=== PATIENT | male | born 1950 | race Caucasian/White ===

== ENCOUNTER 2018-04-23 13:40 | Outpatient (RCR) | payer OTHER ==
[~2018-04-23] VITALS: Ht 182.9 cm; Wt 95.3 kg
[~2018-04-23 13:40] MED LIST: CHOL100058 PO; LOR5 PO; ONDA4TAB PO; OXYC-865 PO; SAW450CA3 PO; TAMS0.4C25 PO
--- NOTE | 2018-04-23 16:26 | Medical Nutrition Therapy ---
Nutrition Anthropometrics Height (Inches): 72 Weight (Pounds): 210 BMI: 28 Doug Nutrition Score: Doug Nutrition Risk Score: Dietary Referral Nutrition Risk Factors: Nutrition Risk Comment: Nutrition/Food History Breakfast: cereal, milk, fruit Lunch: [place] [facility] or sandwich or salad Dinner: meat, starch, veg or sand/salad Snacks: cranberry and grapefruit pierre Nutritional Education Nutrition Education Topic: Diabetic Nutrition Learning Readiness: Eager Teaching Methods: Discussion, Handout, Demonstration Response to Teaching: Verbalize understanding Teaching Recipient: Patient Nutrition Counseling: Pt with new dx T2DM. Pt stated had A!C in 6's last year and this year was 12.3. Unknown why it would increase that rabidly in 1 year. Explained the difference between type 1, type 2 and JAILYN diabetes. [place] pt is controlling BG with diet only. Discussed glucometer and recommend pt check BG. Reviewed plate method and CHO counting. Provided meal plan of 60gm CHO or 2c using plate method. Pt set behavioural goals and support plan. Pt is scheduled for diabetes classes. Nutrition Monitoring & Eval RD Patient Assessment Time: 75 minutes Nutritional Comment: Provided 75 minutes diabetes education focuaing on what is diabetes, nutrtion, behavioural goal and support plan. Copies To Copies to: BIANCA CLEMONS BETH Apr 23, 2018 16:26
--- NOTE | 2018-05-10 18:05 | Medical Nutrition Therapy ---
Nutritional Education Nutrition Education Topic: Other Learning Readiness: Eager, Interested Teaching Methods: Discussion, Handout, Audiovisual Response to Teaching: Verbalize understanding Teaching Recipient: Patient, Significant Other Nutrition Monitoring & Eval RD Patient Assessment Time: [address] Assessment Type: RD Education Nutritional Comment: Provided 75 minutes diabetes education focuaing on what is diabetes, nutrtion, behavioural goal and support plan. 05/10/18 Pt recently diagnosed with T2DM after overt symptoms and blood glucose levels in the 300's. Pt and instructed on Living with Diabetes topics including foot care, terminal operator complications, exercise, hypoglycemia, sick day care, etc. Pt appears interested in diabetes topics and able to answer questions regarding topics covered. I personally spent a total of 90 minutes educating/counseling patient regarding diabetes self-management in a group setting. See education section and my note above for details. -DRT Copies To Copies to: BIANCA CLEMONS DIANNE May 10, 2018 18:05
--- NOTE | 2018-05-24 13:56 | Medical Nutrition Therapy ---
Nutritional Education Nutrition Counseling: Provided group diabetes education on nutrition. Reviewed: process of digestion; function of CHO, protein and fat; glycemic index; reading labels, portion sizes; heart healthy intake; eating out, alcohol. Nutrition Monitoring & Eval RD Patient Assessment Time: [address] Assessment Type: RD Education Nutritional Comment: Provided 75 minutes diabetes education focuaing on what is diabetes, nutrtion, behavioural goal and support plan. 05/10/18 Pt recently diagnosed with T2DM after overt symptoms and blood glucose levels in the 300's. Pt and instructed on Living with Diabetes topics including foot care, keno terminal operator complications, exercise, hypoglycemia, sick day care, etc. Pt appears interested in diabetes topics and able to answer questions regarding topics covered. I personally spent a total of 90 minutes educating/counseling patient regarding diabetes self-management in a group setting. See education section and my note above for details. -EKATERINA 05/24 Provided 90 minutes diabesed education in a group setting focusing on nutrition. TREVOR. Copies To Copies to: BIANCA CLEMONS BETH May 24, 2018 13:56
== END 2018-05-28 ==
LOC: DIET 13:40
PROVIDERS: ATTEND Nurse Practitioner Psychiatric/Mental Health
DX: Z71.3 Dietary counseling and surveillance (principal); E11.65 Type 2 diabetes mellitus with hyperglycemia; Z68.28 Body mass index [BMI] 28.0-28.9, adult
CPT/HCPCS: G0108; G0109

== ENCOUNTER 2019-03-20 07:10 | Emergency (ER) | payer MEDICARE, OTHER ==
[2019-03-20] MEDS ORDERED: NS(*) 0.9% 1000 ML BAG 1,000 ML IV ONE (07:12)
[2019-03-20] MEDS ORDERED: ONDANSETRON 4 MG/2 ML VIAL IVP ONE (07:15)
[2019-03-20] MEDS ORDERED: KETOROLAC 30 MG/ML VIAL IVP ONE (07:15)
[2019-03-20 07:41] LABS: PLATELET COUNT, AUTOMATED 190 K/uL (150-450)
--- NOTE | 2019-03-20 08:15 | ER Report ---
History and Physical Time Seen By MD: 17:10 Hx. of Stated Complaint: patient reports left flank pain. he reports that he passed a kidney stone yesterday. he has had these before but never back to back. HPI/ROS CHIEF COMPLAINT: Left flank pain HISTORY OF PRESENT ILLNESS: Patient is a 68-year-old male comes emergency Dep artment complaining of left flank pain that began this morning about 5:00 in the morning. Patient's physical back to [facility] up an hour later still had the severe pain. Patient also states he no he passed a kidney stone yesterday she had a 9 mm stone that dropped into the UVJ and he was able to pass it and was thinks secondary to be no more pain already he is having pain in the left side. Patient has a history of kidney stones in the past. Patient's denying nausea vomiting diarrhea fever chills after arrival E's back to being pain-free. Patient has no additional complaints REVIEW OF SYSTEMS: Respiratory: No cough, no dyspnea. Cardiovascular: No chest pain, no palpitations. Gastrointestinal: No vomiting, no abdominal pain. Musculoskeletal: Left flank pain Remainder of the 14 system rev: Yes Allergies: Coded Allergies: No Known Drug Allergies (Unverified , 04/16/15) Home Meds Active Scripts Tamsulosin Hcl (FLOMAX) 0.4 Mg Cap.er.24h, 0.4 MG PO DAILY, #7 Prov:THAD PLAZA 04/16/15 Reported Medications Cholecalciferol (Vitamin D3) (VITAMIN D) 1,000 Unit Capsule, 1000 UNIT PO, CAPSULE 12/10/15 Saw Norlina Fruit (SAW PALMETTO) 450 Mg Capsule, 450 MG PO, CAPSULE 12/10/15 Reviewed Nurses Notes: Yes Old Medical Records Reviewed: Yes Hx Smoking: Yes (1PPD FOR 45 YRS) Smoking Status: Never Smoker Hx Substance Use Disorder: No Hx Alcohol Use: Yes Constitutional Vital Sign - Last 24 Hours 03/20/19 07:13 Temp 97.7 Pulse 74 Resp 20 B/P (MAP) 139/86 Pulse Ox 92 O2 Delivery Room Air Physical Exam General Appearance: The patient is alert, has no immediate need for airway protection and no current signs of toxicity. [ ] Eyes: Pupils equal and round no injection. Respiratory: Chest is non tender, lungs are clear to auscultation. Cardiac: regular rate and rhythm [ ] Gastrointestinal: Abdomen is soft and non tender, no masses, bowel sounds normal. Musculoskeletal: Neck: Neck is supple and non tender. Extremities have full range of motion and are non tender. Skin: No rashes or lesions. [ ] DIFFERENTIAL DIAGNOSIS: After history and physical exam differential diagnosis was considered for kidney stone nephrolithiasis urinary tract infection Medical Decision Making Data Points Result Diagram: 03/20/19 0720 03/20/19 0720 Laboratory Hematology Test 03/20/19 07:13 03/20/19 07:20 Urine Color Yellow Urine Clarity Clear Urine pH 5.0 pH (4.8-9.5) Urine Specific [place] 1.021 Urine Protein Negative mg/dL (NEGATIVE) Urine Glucose (UA) Negative mg/dL (NEGATIVE) Urine Ketones 20 mg/dL (NEGATIVE) Urine Blood Moderate (NEGATIVE) Urine Nitrite Negative (NEGATIVE) Urine Bilirubin Negative (NEGATIVE) Urine Urobilinogen Negative mg/dL (0.2-1.9) Urine Leukocyte Esterase Negative (NEGATIVE) Urine RBC 7 /HPF (0-2/HPF) Urine WBC 2 /HPF (0-5/HPF) Urine Squamous Epithelial Cells Few /LPF (</=FEW) Urine Bacteria Negative /HPF (NONE-FEW) Urine Hyaline Casts Few /LPF (NONE-FEW) Urine Mucus Few /HPF (NONE-FEW) Red Blood Count 4.81 M/uL (4.00-5.60) Mean Corpuscular Volume 94.0 fL (80.0-96.0) Mean Corpuscular Hemoglobin 31.5 pg (26.0-33.0) Mean Corpuscular Hemoglobin Concent 33.5 g/dL (32.0-36.0) Red Cell Distribution Width 14.1 % (11.5-14.5) Mean Platelet Volume 7.4 fL (7.2-11.1) Neutrophils (%) (Auto) 77.3 % (39.4-72.5) Lymphocytes (%) (Auto) 10.6 % (17.6-49.6) Monocytes (%) (Auto) 10.9 % (4.1-12.4) Eosinophils (%) (Auto) 0.7 % (0.4-6.7) Basophils (%) (Auto) 0.5 % (0.3-1.4) Nucleated RBC Relative Count (auto) 0.0 /100WBC Neutrophils # (Auto) 9.3 K/uL (2.0-7.4) Lymphocytes # (Auto) 1.3 K/uL (1.3-3.6) Monocytes # (Auto) 1.3 K/uL (0.3-1.0) Eosinophils # (Auto) 0.1 K/uL (0.0-0.5) Basophils # (Auto) 0.1 K/uL (0.0-0.1) Nucleated RBC Absolute Count (auto) 0.00 K/uL Sodium Level 138 mmol/L (137-145) Potassium Level 4.0 mmol/L (3.5-5.0) Chloride Level 109 mmol/L (98-107) Carbon Dioxide Level 21 mmol/L (22-30) Blood Urea Nitrogen 21 mg/dl (9-21) Creatinine 1.20 mg/dl (0.66-1.25) Glomerular Filtration Rate Calc > 60.0 Random Glucose 156 mg/dl (75-110) Calcium Level 9.7 mg/dl (8.4-10.2) Total Bilirubin 1.0 mg/dl (0.2-1.3) Aspartate Amino Transf (AST/SGOT) 21 U/L (0-35) Alanine Aminotransferase (ALT/SGPT) 31 U/L (0-56) Alkaline Phosphatase 92 U/L (0-126) Total Protein 6.6 g/dl (6.3-8.2) Albumin 3.8 g/dl (3.5-5.0) Lipase 22 U/L (23-300) Chemistry Test 03/20/19 07:13 03/20/19 07:20 Urine Color Yellow Urine Clarity Clear Urine pH 5.0 pH (4.8-9.5) Urine Specific [place] 1.021 Urine Protein Negative mg/dL (NEGATIVE) Urine Glucose (UA) Negative mg/dL (NEGATIVE) Urine Ketones 20 mg/dL (NEGATIVE) Urine Blood Moderate (NEGATIVE) Urine Nitrite Negative (NEGATIVE) Urine Bilirubin Negative (NEGATIVE) Urine Urobilinogen Negative mg/dL (0.2-1.9) Urine Leukocyte Esterase Negative (NEGATIVE) Urine RBC 7 /HPF (0-2/HPF) Urine WBC 2 /HPF (0-5/HPF) Urine Squamous Epithelial Cells Few /LPF (</=FEW) Urine Bacteria Negative /HPF (NONE-FEW) Urine Hyaline Casts Few /LPF (NONE-FEW) Urine Mucus Few /HPF (NONE-FEW) White Blood Count 12.0 k/uL (4.5-11.0) Red Blood Count 4.81 M/uL (4.00-5.60) Hemoglobin 15.2 g/dL (14.0-18.0) Hematocrit 45.2 % (42.0-52.0) Mean Corpuscular Volume 94.0 fL (80.0-96.0) Mean Corpuscular Hemoglobin 31.5 pg (26.0-33.0) Mean Corpuscular Hemoglobin Concent 33.5 g/dL (32.0-36.0) Red Cell Distribution Width 14.1 % (11.5-14.5) Platelet Count 190 K/uL (150-450) Mean Platelet Volume 7.4 fL (7.2-11.1) Neutrophils (%) (Auto) 77.3 % (39.4-72.5) Lymphocytes (%) (Auto) 10.6 % (17.6-49.6) Monocytes (%) (Auto) 10.9 % (4.1-12.4) Eosinophils (%) (Auto) 0.7 % (0.4-6.7) Basophils (%) (Auto) 0.5 % (0.3-1.4) Nucleated RBC Relative Count (auto) 0.0 /100WBC Neutrophils # (Auto) 9.3 K/uL (2.0-7.4) Lymphocytes # (Auto) 1.3 K/uL (1.3-3.6) Monocytes # (Auto) 1.3 K/uL (0.3-1.0) Eosinophils # (Auto) 0.1 K/uL (0.0-0.5) Basophils # (Auto) 0.1 K/uL (0.0-0.1) Nucleated RBC Absolute Count (auto) 0.00 K/uL Glomerular Filtration Rate Calc > 60.0 Calcium Level 9.7 mg/dl (8.4-10.2) Total Bilirubin 1.0 mg/dl (0.2-1.3) Aspartate Amino Transf (AST/SGOT) 21 U/L (0-35) Alanine Aminotransferase (ALT/SGPT) 31 U/L (0-56) Alkaline Phosphatase 92 U/L (0-126) Total Protein 6.6 g/dl (6.3-8.2) Albumin 3.8 g/dl (3.5-5.0) Lipase 22 U/L (23-300) Urinalysis Test 03/20/19 07:13 Urine Color Yellow Urine Clarity Clear Urine pH 5.0 pH (4.8-9.5) Urine Specific [place] 1.021 Urine Protein Negative mg/dL (NEGATIVE) Urine Glucose (UA) Negative mg/dL (NEGATIVE) Urine Ketones 20 mg/dL (NEGATIVE) Urine Blood Moderate (NEGATIVE) Urine Nitrite Negative (NEGATIVE) Urine Bilirubin Negative (NEGATIVE) Urine Urobilinogen Negative mg/dL (0.2-1.9) Urine Leukocyte Esterase Negative (NEGATIVE) Urine RBC 7 /HPF (0-2/HPF) Urine WBC 2 /HPF (0-5/HPF) Urine Squamous Epithelial Cells Few /LPF (</=FEW) Urine Bacteria Negative /HPF (NONE-FEW) Urine Hyaline Casts Few /LPF (NONE-FEW) Urine Mucus Few /HPF (NONE-FEW) ED Course/Re-evaluation ED Course ED course externum L3 millimeter stone nonobstructive no sign of infection patient be discharged and primary care follow-up diagnosis kidney stone Decision to Disposition Date: March 20, 2019 Decision to Disposition Time: 08:41 Depart Departure Latest Vital Signs Vital Signs Date Time Temp Pulse Resp B/P (MAP) Pulse Ox O2 Delivery O2 Flow Rate FiO2 03/20/19 07:13 97.7 74 20 139/86 92 Room Air Impression: Primary Impression: Nephrolithiasis Condition: Improved Disposition: HOME OR SELF-CARE Referrals: BIANCA CLEMONS (PCP) 5 Days Patient Instructions: Kidney Stones (DC) BRONSON LUEVANO MD March 20, 2019 08:15
--- NOTE | 2019-03-20 08:39 | RADIOLOGY IMAGING REPORT ---
FACILITY: [facility] - [place] PATIENT NAME: Aristeo Schafer : 1950 MR: [id number] V: [id number] EXAM DATE: ORDERING PHYSICIAN: BRONSON LUEVANO TECHNOLOGIST: Location: [facility] - [place] Patient: Aristeo Schafer : 1950 Visit/Account:[id number] Date of Sevice: 03/20/2019 CT ABDOMEN PELVIS W/O CON HISTORY: kidney stone, left flank pain TECHNIQUE: Axial images acquired through the abdomen/pelvis. Coronal and sagittal reformatting also performed. No IV contrast administered.Dose Lowering Technique One of the following dose optimization techniques was utilized in the performance of this exam: Autom ated exposure control; adjustment of the mA and/or kV according to the patient's size; or use of an i terative reconstruction technique. Specific details can be referenced in the facility's radiology C T exam operational policy. COMPARISON: April 16, 2015 FINDINGS: Visualized lung bases: There is linear scarring versus atelectasis in the lung bases Hepatobiliary: Liver is enlarged measuring 20.8 cm in length. The gallbladder is mildly distended a lthough there is no evidence of biliary ductal dilatation. This could be related to a fasting state. Spleen: The spleen is enlarged measuring 15.4 cm in length Adrenals: Negative. Pancreas: Negative. Kidneys ureters and bladder: There multiple nonobstructing calculi in the right renal collecting syst em the largest measuring approximately 4 mm. There is mild perinephric stranding on the right. There is moderate perinephric stranding on the left and a mild to moderate left hydronephrosis and le ft hydroureter secondary to a 3 mm calculus in the distal left ureter. There are at least two additi onal nonobstructing calculi in the left renal collecting system measuring up to 3 mm. The bladder wa ll is mildly thickened although could be related to underdistention with urine. Genitalia: Prostate gland is at least moderately enlarged impinging upon the floor the bladder and c ontains coarse calcifications GI: There is diverticulosis throughout the colon although no CT evidence of acute diverticulitis Vessels/spaces/nodes: There moderate arthroscopic calcination occasions throughout the abdominal aor ta and branch vessels. There are shotty retroperitoneal lymph nodes . Period there are several por tacaval lymph nodes the largest measuring 1.8 x 1.1 cm and have remained stable Bones/soft tissues: There is a large periumbilical hernia containing fat. Period there are moderate spondylotic changes of the lumbar spine Additional findings: None pertinent. IMPRESSION: There is mild to moderate left hydronephrosis and left hydroureter secondary to a 3 mm calculus at th e left UVJ. There are additional nonobstructing calculi in both renal collecting systems Large periumbilical hernia containing fat Hepatosplenomegaly Additional chronic findings as described Report Dictated By: Jordyn Caruso MD at 03/20/2019 8:21 AM Report E-Signed By: Jordyn Caruso MD at 03/20/2019 8:33 AM ASAELN:LEILA
[2019-03-20 08:41] VITALS: BP 110/82
== END 2019-03-20 08:45 | disposition home or self-care (01) ==
LOC: ER 07:15
DX: N20.0 Calculus of kidney (principal)
CPT/HCPCS: 74176; 81001; 83690; 85025; 96361; 96374; 96375; 99284; J1885; J2405; J7030; 82040; 82247; 82310; 82374; 82435; 82565; 82947; 84075; 84132; 84155; 84295; 84450; 84460; 84520

== ENCOUNTER → 2019-03-29 | Outpatient (CLI) | payer MEDICARE, OTHER ==
[~2019-03-29] MED LIST changes: +CELE-1 PO; +COLE3.756 PO; +CRAN500T2; +VITA100014 PO
--- NOTE | 2019-03-29 10:00 | RADIOLOGY IMAGING REPORT ---
FACILITY: [facility] - [place] PATIENT NAME: Aristeo Schafer : 1950 MR: [id number] V: [id number] EXAM DATE: ORDERING PHYSICIAN: KALE CASIANO TECHNOLOGIST: Location: [facility] - [place] Patient: Aristeo Schafer : 1950 Visit/Account:[id number] Date of Sevice: 03/29/2019 Examination: Abdomen single view HISTORY: Kidney stones. FINDINGS: Single frontal view of the abdomen is submitted on 2 images. The intestinal bowel gas patte rn is normal. No calcifications overlie the renal contours. Lung bases are clear. Degenerative change s involve the spine. 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 IMPRESSION: 1. No radiographically apparent renal calculi. Report Dictated By: Fred Ernst at 03/29/2019 9:53 AM Report E-Signed By: Fred Ernst at 03/29/2019 9:55 AM WSN:[id number]
--- NOTE | 2019-03-29 10:01 | RADIOLOGY IMAGING REPORT ---
FACILITY: [facility] - [place] PATIENT NAME: Aristeo Schafer : 1950 MR: [id number] V: [id number] EXAM DATE: ORDERING PHYSICIAN: KALE CASIANO TECHNOLOGIST: Location: [facility] - [place] Patient: Aristeo Schafer : 1950 Visit/Account:[id number] Date of Sevice: 03/29/2019 EXAMINATION: CT Abdomen W/O Contrast CT Pelvis W/O Contrast HISTORY: Kidney stones TECHNIQUE: Spiral scan was through the abdomen and pelvis without intravenous contrast. COMPARISON STUDIES: 03/20/2019. FINDINGS: Please note that without intravenous contrast, sensitivity to detection of parenchymal disease is cordoba ited. Liver / biliary: Liver is enlarged measuring approximately 20 cm in craniocaudal dimension. There is no mass or intrahepatic ductal dilatation. Surface of the liver is mildly lobulated, query cirrhosi s. Gallbladder is unremarkable. Pancreas: Negative Spleen: Borderline enlarged measuring approximately 14 cm in craniocaudal dimension. No focal abnor mality. Adrenal glands: Negative Kidneys / retroperitoneum: Multiple nonobstructing right renal calculi again noted without significa nt change. The largest measuring approximately 4 mm in maximal dimension. There is mild stranding o f the perinephric fat. No hydronephrosis. Multiple nonobstructing left renal calculi identified the largest measuring approximately 3 to 4 mm similar to previous. Left hydronephrosis has resolved. T here is mild stranding of the perinephric fat. Distal left ureteral calculus seen on the prior study is no longer visualized. Ureter is not dilated. Pelvic structures: Bladder is mildly distended and thick-walled. There is a calcification in the dependent portion of the bladder on the right side which may reflect the calculus which was present in the distal left ureter on the prior study. Prostate is enlarged. Bowel / peritoneum / mesenteries: Scattered diverticuli are present. There is no evidence of divert iculitis. Moderate stool is present in the colon. There is no evidence of bowel obstruction. No fr ee fluid or free air. Vessels: Atherosclerotic changes present in the aorta and branch vessels. There is no aneurysm. Musculoskeletal / Body wall: Midline anterior abdominal wall hernia containing fat is again noted. Degenerative changes present in the lumbar spine most significant at L4-5 and L5-S1. Lymph node assessment: There is no significant retroperitoneal or pelvic sidewall adenopathy. Few s cattered nodes are present in the groin bilaterally. Lower chest: Negative IMPRESSION: 1. Bilateral nonobstructing renal calculi, unchanged. There is been interval resolution of left hyd ronephrosis. 2. Distal left ureteral calculus no longer visualized. There is now a calculus in the bladder which likely represents that prior obstructing stone. 3. Prominent prostate. 4. Hepatomegaly. Spleen borderline enlarged. Mild hepatic lobulations may be indicative of early c hanges of cirrhosis. 5. Midline abdominal hernia containing fat without apparent complication. Report Dictated By: Maine Bruce MD at 03/29/2019 9:40 AM Report E-Signed By: Maine Bruce MD at 03/29/2019 9:56 AM ASAELN:[id number]
== END ==
LOC: CT 02:18
PROVIDERS: ATTEND Urology
DX: N20.0 Calculus of kidney (principal)
CPT/HCPCS: 74018; 74176

== ENCOUNTER → 2019-04-03 | Outpatient (CLI) | payer MEDICARE, OTHER | LOC: LAB 10:30 | PROVIDERS: ATTEND Urology | DX: N20.0 Calculus of kidney (principal) | CPT/HCPCS: 82365; 88300 ==